=== PATIENT | male | born 1990 | race Caucasian/White ===

== ENCOUNTER 2024-06-03 12:11 | Observation (INO) ==
[2024-06-03 12:36] LABS: Basophils # (auto) 0.07 K/uL (0.00-0.20); Basophils % (auto) 0.5 %; Eosinophils # (auto) 0.24 K/uL (0.00-0.50); Eosinophils % (auto) 1.6 %; Hematocrit (blood only) 50.1 % (42.0-52.0); Hemoglobin 17.3 g/dl (14.0-18.0); Immature Granulocytes # (auto) 0.15 K/uL (0.01-0.20); Lymphocytes # (auto) 1.64 K/uL (1.20-3.40); Lymphocytes % (auto) 10.8 %; Mean Corpuscular Hemoglobin 29.7 pg (25.0-34.0); Mean Corpuscular Hgb Conc 34.5 g/dL (32.0-36.0); Mean Corpuscular Volume 85.9 fL (80.0-100.0); Mean Platelet Volume 10.2 fL (9.4-12.4); Monocytes # (auto) 1.25 K/uL (0.11-0.59); Monocytes % (auto) 8.2 %; Neutrophils # (auto) 11.82 K/uL (1.40-6.50); Neutrophils % (auto) 77.9 %; Platelet Count 203 K/uL (130-400); RDW Coefficient of Variation 12.6 % (11.5-14.5); RDW Standard Deviation 38.7 fL (36.4-46.3); Red Blood Count 5.83 M/uL (4.70-6.10); White Blood Count 15.17 K/ul (4.8-10.8)
[2024-06-03 12:37] LABS: Appearance Urine Clear (Clear); Bilirubin Urine Negative (Negative); Blood Urine Negative (Negative); Color Urine Yellow; Glucose Urine UA Negative (Negative); Ketones Urine Negative (Negative); Leukocyte Esterase Urine Negative (Negative); Nitrite Urine Negative (Negative); Protein Urine Negative (Negative); Urobilinogen Urine Negative (Negative); pH Urine 6.5 (4.5-7.5)
[2024-06-03 13:03] LABS: Alanine Aminotransferase 74 U/L (7-52); Albumin Globulin Ratio 1.7 (0.9-2); Albumin Level 4.8 gm/dl (3.4-5.0); Alkaline Phosphatase 86 U/L (34-104); Anion Gap 7 (3-11); BUN Creatinine Ratio 17.8 (10-20); Bilirubin,Total 0.4 mg/dl (0.2-1.0); Blood Urea Nitrogen 16 mg/dl (6-23); Calcium 10.2 mg/dl (8.6-10.3); Carbon Dioxide 26 mmol/L (21-32); Chloride 102 mmol/L (98-107); Creatinine Clr Calc Pharmacy 145.6 ml/min; Est GFR (African American) 130.5 ml/min; Est GFR (Non-African American) 112.6 ml/min; Globulin 2.9 gm/dl (2.5-4.0); Glucose 115 mg/dl (70-99(Fasting)); Lipase 38 U/L (11-82); Sodium 135 mmol/L (136-145); Total Protein 7.7 gm/dl (6.0-8.3)
[2024-06-03 13:34] LABS: Potassium 4.5 mmol/L (3.5-5.1)
[2024-06-03] MEDS: ONDANSETRON INJ 2 MG/ML 2 ML VIAL IV STA (13:59)
[2024-06-03] MEDS: MoRPHine SULFATE 4 MG/ML 1 ML CARP\\VIAL IV STA (14:01)
[2024-06-03] MEDS: OPTIRAY 320 100ml IV ONE (14:08)
--- NOTE | 2024-06-03 14:12 | Emergency Department Note ---
Impression & Plan Acute cholecystitis, Gallstones, Abdominal pain, acute, right upper quadrant ED Provider Note NAME: ERIKA PARRA AGE: 33 SEX: M : 1990 ARRIVES VIA: Walk-In INFORMANT: Patient, ED PROVIDER(S): Jose Joe DO CHIEF COMPLAINT: Abdominal pain HPI: The patient is a 33-year-old male who presented to the emergency department for an evaluation of abdominal pain. The patient describes abdominal pain that is in the upper abdomen. The patient denies having any nausea or vomiting. He denies having any back pain. The patient denies having any fever. He did have similar pain a few days ago but it resolved spontaneously. The patient denies having any alcohol abuse. He did not see his family doctor for the symptoms but came to emergency department today because of ongoing and worsening symptoms. ROS: See above HPI for pertinent positives & negatives. A total of 10 systems reviewed and were otherwise negative. PAST MEDICAL HISTORY: See Below PAST SURGICAL HISTORY: See Below FAMILY HISTORY: See Below SOCIAL HISTORY: See Below HOME MEDICATIONS: See Below ALLERGIES: See Below VITALS: See Below PHYSICAL EXAMINATION: GENERAL: Patient is awake alert in no acute distress patient is resting comfortably and showing no signs of anxiety EYES: The conjunctivae are clear. The pupils are round and reactive. EARS, NOSE, MOUTH AND THROAT: The nose is without any evidence of any deformity. Mucous membranes are moist. Tongue is midline. NECK: The neck is nontender and supple. RESPIRATORY: Normal respiratory effort is noted there is no evidence of wheezing rhonchi or rales CARDIOVASCULAR: Regular rate and rhythm noted there no murmurs rubs or gallops normal S1 normal S2. GASTROINTESTINAL: The abdomen is soft and nondistended. There is right upper quadrant tenderness to palpation which is moderate. MUSCULOSKELETAL/EXTREMITIES: There is no evidence of gross deformity full range of motion is noted in the hips and shoulders. SKIN: There is no obvious evidence of any rash. There are no petechiae, pallor or cyanosis noted. NEUROLOGIC: Patient is awake alert and oriented x 3. MEDICAL DECISION MAKING: The patient is a 33-year-old male who presented to the emergency department for an evaluation of abdominal pain. The patient had right upper quadrant abdominal pain on my physical exam. History and physical exam appear to be consistent with possible gallbladder pathology. The patient was treated with pain medication in the emergency department. He was also given IV antibiotics when CT appeared to be consistent with acute cholecystitis. I discussed the patient's laboratory and radiographic studies with him. I discussed his condition with the on-call general surgeon. They have agreed to evaluate the patient in the emergency department for further management and disposition. Triage Nursing notes reviewed. Prior medical records reviewed Vital Signs: reviewed and remarkable for no significant abnormalities Differential diagnosis: Etiologies such as appendicitis, diverticulitis, obstruction, inflammatory bowel disease, renal colic, PUD, biliary pathology, pancreatitis, mesenteric ischemia, aortic pathology, infections, genitourinary, UTI, perforated viscus, as well as others were entertained. ER treatment provided: See below Diagnostics interpreted by me: ECG: none Cardiac Monitoring: An order was placed for continuous cardiac monitoring. The monitor shows a rate of 62 bpm with sinus rhythm. Laboratory studies: As stated above and show below. Imaging studies: See below. Radiographic imaging was reviewed by myself Consultation(s): I discussed this case with Dr. Kaba who is on-call for the general surgical group. Past Med/Surg History Problem List (Updated 06/03/24 @ 16:51 by Jose Joe DO) Abdominal pain, acute, right upper quadrant (Acute) Gallstones (Acute) Acute cholecystitis (Acute) Social History Smoking Status: Current every day smoker Tobacco Type: Cigarettes Preferred Language: Finnish Feels Safe at Home: Yes Allergies Allergies Allergy/AdvReac Type Severity Reaction Status Date / Time bee venom protein (honey bee) Allergy Intermediate swelling Unverified 06/03/24 15:22 Home Meds Home Medications Medication Instructions Recorded Confirmed ibuprofen 1 - 2 tab PO DIRECTED PRN Pain 06/03/24 06/03/24 multivitamin 1 tab PO DAILY 06/03/24 06/03/24 Results & Data (ED) Vital Signs Vital Signs - 24 hr 06/03/24 12:12 06/03/24 13:18 06/03/24 13:44 Temperature 36.6 C Temperature Source Temporal Artery Scan Pulse Rate 69 Pulse Rate [Right Finger] 57 L 64 Pulse Rhythm [Right Finger] Regular Regular Pulse Strength [Right Finger] Normal Normal Respiratory Rate 18 17 20 Respiratory Effort / Characteristics Non-Labored Non-Labored Respiratory Depth Normal Normal Respiratory Pattern Regular Regular Blood Pressure 143/84 H Blood Pressure [Left Arm] 148/87 H 146/86 H Blood Pressure Mean 103 Blood Pressure Mean [Left Arm] 107 106 Blood Pressure Position [Left Arm] Lying Lying Pulse Oximetry 99 96 96 Oxygen Delivery Method Room Air Room Air Room Air Sepsis Recent Fever Within 48 Hours No Sepsis New/Unexplained Change in Mental Status N/A Sepsis Action Taken by Nursing No Action Required 06/03/24 14:04 06/03/24 14:40 Temperature Temperature Source Pulse Rate Pulse Rate [Right Finger] 62 Pulse Rhythm [Right Finger] Regular Pulse Strength [Right Finger] Normal Respiratory Rate 20 Respiratory Effort / Characteristics Non-Labored Respiratory Depth Normal Respiratory Pattern Regular Blood Pressure Blood Pressure [Left Arm] 158/81 H 122/82 Blood Pressure Mean Blood Pressure Mean [Left Arm] 106 95 Blood Pressure Position [Left Arm] Lying Pulse Oximetry 94 Oxygen Delivery Method Room Air Sepsis Recent Fever Within 48 Hours Sepsis New/Unexplained Change in Mental Status Sepsis Action Taken by [facility] Medications Current Medication List: was personally reviewed by me Laboratory Data Attestation: I reviewed the patient's lab results. 06/03/24 12:16 06/03/24 13:07 Lab Results 06/03/24 06/03/24 06/03/24 Range/Units 12:16 12:22 13:07 WBC 15.17 H (4.8-10.8) K/ul RBC 5.83 (4.70-6.10) M/uL Hgb 17.3 (14.0-18.0) g/dl Hct 50.1 (42.0-52.0) % MCV 85.9 (80.0-100.0) fL MCH 29.7 (25.0-34.0) pg MCHC 34.5 (32.0-36.0) g/dL RDW Std Deviation 38.7 (36.4-46.3) fL RDW Coeff of Mary Alice 12.6 (11.5-14.5) % Plt Count 203 (130-400) K/uL MPV 10.2 (9.4-12.4) fL Immature Gran % (Auto) 1.0 % Neut % (Auto) 77.9 % Lymph % (Auto) 10.8 % Gregory % (Auto) 8.2 % Eos % (Auto) 1.6 % Baso % (Auto) 0.5 % Neut # (Auto) 11.82 H (1.40-6.50) K/uL Lymph # (Auto) 1.64 (1.20-3.40) K/uL Gregory # (Auto) 1.25 H (0.11-0.59) K/uL Eos # (Auto) 0.24 (0.00-0.50) K/uL Baso # (Auto) 0.07 (0.00-0.20) K/uL Immature Gran # (Auto) 0.15 (0.01-0.20) K/uL Sodium 135 L (136-145) mmol/L Potassium TNP 4.5 Chloride 102 (98-107) mmol/L Carbon Dioxide 26 (21-32) mmol/L Anion Gap 7 (3-11) BUN 16 (6-23) mg/dl Creatinine 0.90 (0.6-1.4) mg/dl Est Cr Clr Drug Dosing 145.6 ml/min Est GFR ( Amer) 130.5 ml/min Est GFR (Non-Af Amer) 112.6 ml/min BUN/Creatinine Ratio 17.8 (10-20) Glucose 115 H (70-99(Fasting)) mg/dl Calcium 10.2 (8.6-10.3) mg/dl Total Bilirubin 0.4 (0.2-1.0) mg/dl AST TNP 40 H ALT 74 H (7-52) U/L Alkaline Phosphatase 86 (34-104) U/L Total Protein 7.7 (6.0-8.3) gm/dl Albumin 4.8 (3.4-5.0) gm/dl Globulin 2.9 (2.5-4.0) gm/dl Albumin/Globulin Ratio 1.7 (0.9-2) Lipase 38 (11-82) U/L Urine Color Yellow Urine Appearance Clear (Clear) Urine pH 6.5 (4.5-7.5) Ur Specific [place] 1.020 (1.000-1.030) Urine Protein Negative (Negative) Urine Glucose (UA) Negative (Negative) Urine Ketones Negative (Negative) Urine Blood Negative (Negative) Urine Nitrite Negative (Negative) Urine Bilirubin Negative (Negative) Urine Urobilinogen Negative (Negative) Ur Leukocyte Esterase Negative (Negative) Administered Medications Discontinued Medications Piperacillin Sod/Tazobactam Sod (Zosyn) 4.5 gm in 100 mls @ 200 mls/hr IV NOW ONE Stop: 06/03/24 16:10 Last Admin: 06/03/24 16:07 Dose: 200 mls/hr Documented By: EMETERIO Ioversol (Optiray 320 100ml) 95 ml IV ONCE ONE Stop: 06/03/24 14:08 Last Admin: 06/03/24 14:08 Dose: 95 ml Documented By: LILLIAN Morphine Sulfate (Morphine Sulfate 4 Mg/Ml 1 Ml Carp\Vial) 4 mg IV NOW STA Stop: 06/03/24 13:43 Last Admin: 06/03/24 14:01 Dose: 4 mg Documented By: ALLEN Ondansetron HCl (Ondansetron Inj 2 Mg/Ml 2 Ml Vial) 4 mg IV NOW STA Stop: 06/03/24 13:43 Last Admin: 06/03/24 13:59 Dose: 4 mg Documented By: ALLEN Imaging Data Attestation: I personally reviewed and interpreted this imaging study as follows: My Impression: CT of the abdomen and pelvis was obtained in the emergency department. My interpretation is no free air or signs of bowel obstruction, there was pericholecystic fluid noted, final report below. Radiologist's Impression: Abdomen/Pelvis CT 06/03/24 13:[address] WITH IV CONTRAST CT DOSE: 1468.74 mGy.cm HISTORY: Right upper quadrant pain. TECHNIQUE: Multiaxial CT images of the abdomen and pelvis were performed following the use of intravenous contrast. A dose lowering technique was utilized adhering to the principles of ALARA. COMPARISON STUDY: None. FINDINGS: The lung bases are clear. No pneumoperitoneum. No pneumatosis. No acute fractures. No hepatic or splenic masses. The pancreas, right adrenal gland, and kidneys are unremarkable. No hydronephrosis. There is an indeterminate 1.9 cm left adrenal gland nodule. The main portal vein is patent. Normal caliber abdominal aorta.. There is a 1.5 cm stone within the neck of the gallbladder which may be impacted. There is mild gallbladder wall thickening with trace pericholecystic fluid. Therefore, this is concerning for an early acute cholecystitis. Normal caliber common bile duct. No retroperitoneal or pelvic lymphadenopathy. No pelvic free fluid. Normal bladder. A few colonic diverticula. No evidence for acute diverticulitis. No bowel wall thickening or obstruction. Normal appendix. There is an additional small stone within the fundus of the gallbladder. IMPRESSION: There is a 1.5 cm stone within the neck of the gallbladder which may be impacted. There is mild gallbladder wall thickening with trace pericholecystic fluid. Therefore, this is concerning for an early acute cholecystitis. Surgical consultation recommended. ACT 112: Negative or not required by law. Electronically signed by: Malik Wood M.D. 06/03/2024 2:52 PM Discharge Plan Visit Data Chief Complaint: Abdominal Pain Stated Complaint: ABD PAIN ED Provider: Jose Joe Discharge Problem: Acute cholecystitis, Gallstones, Abdominal pain, acute, right upper quadrant Patient Disposition: Being Evaluated by Surgeon Forms Stand Alone Forms: [employer] Prescriptions Prescriptions: No Action multivitamin [Multi-Vitamin] Tablet 1 tab PO DAILY ibuprofen 1 - 2 tab PO DIRECTED PRN (Reason: Pain) Rx Instructions: otc Referrals Referrals: PCP,NO [Primary Care Provider] -
--- NOTE | 2024-06-03 14:55 | CT Scan Report ---
ABDOMEN AND PELVIS CT WITH IV CONTRAST CT DOSE: 1468.74 mGy.cm HISTORY: Right upper quadrant pain. TECHNIQUE: Multiaxial CT images of the abdomen and pelvis were performed following the use of intrave nous contrast. A dose lowering technique was utilized adhering to the principles of ALARA. COMPARISON STUDY: None. FINDINGS: The lung bases are clear. No pneumoperitoneum. No pneumatosis. No acute fractures. No hepat ic or splenic masses. The pancreas, right adrenal gland, and kidneys are unremarkable. No hydronephro sis. There is an indeterminate 1.9 cm left adrenal gland nodule. The main portal vein is patent. Norm al caliber abdominal aorta.. There is a 1.5 cm stone within the neck of the gallbladder which may be impacted. There is mild gallbladder wall thickening with trace pericholecystic fluid. Therefore, this is concerning for an early acute cholecystitis. Normal caliber common bile duct. No retroperitoneal or pelvic lymphadenopathy. No pelvic free fluid. Normal bladder. A few colonic diverticula. No eviden ce for acute diverticulitis. No bowel wall thickening or obstruction. Normal appendix. There is an ad ditional small stone within the fundus of the gallbladder. IMPRESSION: There is a 1.5 cm stone within the neck of the gallbladder which may be impacted. There is mild gallb ladder wall thickening with trace pericholecystic fluid. Therefore, this is concerning for an early a cute cholecystitis. Surgical consultation recommended. ACT 112: Negative or not required by law. Electronically signed by: Malik Wood M.D. 06/03/2024 2:52 PM
[2024-06-03] MEDS: PIPERACILLIN/TAZOBACTAM 4.5 GM/100 ML BAG IV ONE (16:07)
[2024-06-03] MEDS ORDERED: ACETAMINOPHEN 325 MG TAB PO PRN (17:44)
[2024-06-03] MEDS ORDERED: MoRPHine SULFATE 2 MG/ML CARP IV PRN (17:44)
[2024-06-03] MEDS ORDERED: ONDANSETRON INJ 2 MG/ML 2 ML VIAL IV PRN (17:44)
[2024-06-03] MEDS: LACTATED RINGER'S 1,000 ML IV SCH (18:00)
[2024-06-03] MEDS: NICOTINE 14 MG/24 HR PATCH TD SCH (18:43)
--- NOTE | 2024-06-03 19:11 | History & Physical Report ---
Date of Service June 03, 2024 Assessment & Plan (1) Acute cholecystitis: Plan: Due to the patient's clinical presentation, as well as findings on imaging the patient will be admitted on the surgical service proceeding as follows: Analgesia will be provided Antiemetics be provided IV fluids be provided for hydration Antibiotics will be continuedthe patient has received Zosyn in the emergency department but we will utilize Unasyn for the remainder of his hospitalization I feel the patient can safely have clear liquids as he does not have any abdominal pain but we will make him n.p.o. after midnight tonight The patient is tentatively scheduled for cholecystectomy with Dr. Jeff Kaba on 06/04/2024. We will repeat LFTs in the morning Would recommend utilizing SCDs only for DVT prevention, no chemical means due to planned surgery The patient will be a level 1 full code Admission and Anticipated Discharge Date Admission Date: June 03, 2024 History of Present Illness Chief Complaint: Abdominal pain Primary Care Provider: NO PCP This is a 33-year-old male who presented to the emergency department [facility] secondary to abdominal pain. The patient notes that this is the second time he had such pain. Approximately 3 days ago the pain reported pain in his upper abdomen unrelated to meals that ultimately resolved without intervention. He notes that the pain recurred earlier today and was much more severe than what he noted previously. I asked the patient if he has had any postprandial pain over the past several weeks to months which he denied. With his current pain he had associated nausea and vomiting but denied any fevers, shakes, or chills. He does not report any modifying factors to the pain. He has never had any abdominal surgeries before. The patient notes that when he feels well he is an active person although he does smoke daily. He does note that he can negotiate steps and inclines without any chest pain or shortness of breath. Since arrival to the hospital the patient had labs and imaging which I independent reviewed. CT scan of the abdomen pelvis showed the patient had a 1.5 cm gallstone in the neck of the gallbladder felt to be impacted. There is mild gallbladder wall thickening and trace pericholecystic fluid with concern for acute cholecystitis. Labs included CBC were white blood cell count was elevated 15.1. Hemoglobin and hematocrit as well as the platelet count were normal. Chemistry profile showed sodium is 135 with a normal potassium. BUN and creatinine were both normal. The patient's total bilirubin alkaline phosphatase were nonelevated. He had a slight elevation of his AST and ALT at 40 and 74 respectively. He did not have any elevation of his lipase. Urinalysis was not indicative of infection. At the time of my interview he was resting comfortably in bed he was in no distress. Concerning past surgical history he denies any surgeries Concerning past medical history denies any medical problems Concerning social history he is a current smoker Allergies Allergy/AdvReac Type Severity Reaction Status Date / Time bee venom protein (honey bee) Allergy Intermediate swelling Unverified 06/03/24 15:22 Home Medications Medication Instructions Recorded Confirmed Type ibuprofen 1 - 2 tab PO DIRECTED PRN Pain 06/03/24 06/03/24 History multivitamin 1 tab PO DAILY 06/03/24 06/03/24 History Past Med/Surg History Problem List Abdominal pain, acute, right upper quadrant (Acute) Gallstones (Acute) Acute cholecystitis (Acute) Social History Smoking Status: Current every day smoker Tobacco Type: Cigarettes Do You Dip or Chew Tobacco: No; Hx Alcohol Use: No Hx Substance Use: No Preferred Language: Lao Communication Ability: Effective Current Living Situation: Significant Other Feels Safe at Home: Yes Safety Concerns: Feels Safe At This Time Assistive Devices: None Review of Systems Review of Systems: All systems reviewed & are unremarkable except as noted in HPI & below Physical Exam Constitutional: WD/WN, vitals as above Eyes: + anicteric sclerae ENMT: Ears: no hearing impairment and no external ear abnormality Sublingual jaundice is absent Neck: trachea midline Respiratory: normal respiratory effort, lungs clear to auscultation Cardiovascular: Rate/Rhythm: regular rate and regular rhythm Gastrointestinal (Abdomen): At the time of my exam the patient's abdomen was noted to be soft and nondistended. There is minimal to no pain at the time of my interview specifically in the right upper quadrant or epigastric areas. There is no rebound tenderness or guarding Musculoskeletal: No calf tenderness Skin: no rashes Neurologic: moves all extremities Psychiatric: A+Ox3, euthymic affect Results & Data Results & Data Vital Signs (Past 12 Hours) Vital Signs Temp Pulse Pulse Resp BP BP Pulse Ox 06/03/24 18:15 06/03/24 17:49 36.8 C 62 16 133/82 94 06/03/24 16:57 06/03/24 14:40 62 20 122/82 94 06/03/24 14:04 158/81 H 06/03/24 13:44 64 20 146/86 H 96 06/03/24 13:18 57 L 17 148/87 H 96 06/03/24 12:12 36.6 C 69 18 143/84 H 99 O2 Del Method 06/03/24 18:15 Room Air 06/03/24 17:49 Room Air 06/03/24 16:57 Room Air 06/03/24 14:40 Room Air 06/03/24 14:04 06/03/24 13:44 Room Air 06/03/24 13:18 Room Air 06/03/24 12:12 Room Air Code Status & VTE Plan VTE Prophylaxis Plan VTE Prophylaxis will be ordered: Yes Supervising Physician Co-Signing Physician Notes I personally saw and evaluated the patient with Anand Leonard PA-C and agree with assessment and plan. 33-year-old male with acute cholecystitis CT images and results were personally reviewed by myself He does have a show gallbladder with thickened wall with gallstones consistent with acute cholecystitis Admit the patient, keep NPO, give IV ABX To OR tomorrow for lap lillian PG Care Time/CCT Total # of Minutes Spent Total Time Spent with Patient: Total time spent is greater than 50% in coordination of care (as documented) at patient's floor/unit and/or counseling patient: Coding Level of Care Code 40641 INT INP/OBS CARE 3/75MIN Diagnoses Acute cholecystitis K81.0
[2024-06-03] MEDS: AMPICILLIN/SULBACTAM SOD 3,000 MG/100 ML BAG IV SCH (20:28)
[2024-06-04 06:22] LABS: Basophils # (auto) 0.05 K/uL (0.00-0.20); Basophils % (auto) 0.5 %; Eosinophils # (auto) 0.45 K/uL (0.00-0.50); Eosinophils % (auto) 4.3 %; Hematocrit (blood only) 47.1 % (42.0-52.0); Hemoglobin 16.7 g/dl (14.0-18.0); Immature Granulocytes # (auto) 0.08 K/uL (0.01-0.20); Immature Granulocytes % (auto) 0.8 %; Lymphocytes # (auto) 2.32 K/uL (1.20-3.40); Mean Corpuscular Hemoglobin 30.2 pg (25.0-34.0); Mean Corpuscular Hgb Conc 35.5 g/dL (32.0-36.0); Mean Corpuscular Volume 85.2 fL (80.0-100.0); Mean Platelet Volume 9.5 fL (9.4-12.4); Monocytes # (auto) 1.16 K/uL (0.11-0.59); Neutrophils % (auto) 61.4 %; Platelet Count 185 K/uL (130-400); RDW Coefficient of Variation 12.9 % (11.5-14.5); RDW Standard Deviation 39.6 fL (36.4-46.3); Red Blood Count 5.53 M/uL (4.70-6.10); White Blood Count 10.56 K/ul (4.8-10.8)
[2024-06-04 06:46] LABS: Albumin Globulin Ratio 1.7 (0.9-2); Albumin Level 4.1 gm/dl (3.4-5.0); BUN Creatinine Ratio 14.8 (10-20); Bilirubin,Total 0.7 mg/dl (0.2-1.0); Calcium 8.9 mg/dl (8.6-10.3); Creatinine Clr Calc Pharmacy 148.9 ml/min; Est GFR (African American) 131.7 ml/min; Est GFR (Non-African American) 113.7 ml/min; Globulin 2.4 gm/dl (2.5-4.0); Potassium 3.9 mmol/L (3.5-5.1); Total Protein 6.5 gm/dl (6.0-8.3)
[2024-06-04 06:51] LABS: Partial Thromboplastin Time 27 Seconds (21-31); Prothrombin Time 10.9 Seconds (9.0-12.0)
[2024-06-04] MEDS ORDERED: fentaNYL citrate PF 100 MCG/2 ML VIAL ONE ×3 (07:16→09:16)
[2024-06-04] MEDS ORDERED: PROPOFOL IV EMULSION 10 MG/ML 20 ML VIAL IV ONE (07:16)
[2024-06-04] MEDS ORDERED: MIDAZOLAM HCL 1 MG/ML 2ML VIAL ONE (07:16)
[2024-06-04] MEDS ORDERED: ROCURONIUM BROMIDE 10 MG/ML 5 ML VIAL IV ONE (07:16)
[2024-06-04] MEDS ORDERED: ONDANSETRON INJ 2 MG/ML 2 ML VIAL ONE (07:16)
[2024-06-04] MEDS ORDERED: LIDOCAINE 2% 2 ML VIAL/AMP(20MG/ML) INFIL ONE (07:16)
[2024-06-04] MEDS ORDERED: ACETAMINOPHEN 1000 MG/100 ML IV IV ONE (07:24)
--- NOTE | 2024-06-04 07:32 | Surgery Progress Note ---
Date of Service June 04, 2024 Assessment & Plan (1) Acute cholecystitis: Plan: Plan on laparoscopic cholecystectomy, possible open today, possible intraoperative cholangiogram Consent was obtained and risks discussed including bleeding, infection, bile leak, ductal injury Admission and Anticipated Discharge Date Admission Date: June 03, 2024 Subjective Patient seen and examined. Pain minimal at this point. Afebrile. NO acute events overnight. Review of Systems Constitutional: no fever and no chills Physical Exam Constitutional: WD/WN, vitals as above Gastrointestinal (Abdomen): Inspection/Auscultation: abdomen normal to inspection; abdomen not distended Percussion/Palpation: + abdomen tender (RUQ) and abdomen soft; no guarding and no hernia Results & Data Vital Signs (Past 12 Hours) Vital Signs Temp Pulse Resp BP Pulse Ox O2 Del Method 06/03/24 20:32 36.7 C 93 H 20 109/71 95 Room Air PG Care Time/CCT Total # of Minutes Spent Total Time Spent with Patient: Total time spent is greater than 50% in coordination of care (as documented) at patient's floor/unit and/or counseling patient: Coding Level of Care Code 69215 SUB INP/OBS CARE 1/25MIN Diagnoses Acute cholecystitis K81.0
[2024-06-04] MEDS ORDERED: ATROPINE SULFATE 0.1 MG/ML 10ML SYR IV PRN (08:25)
[2024-06-04] MEDS ORDERED: ePHEDrine sulfate 50 MG/ML AMP IV PRN (08:25)
[2024-06-04] MEDS ORDERED: PROMETHAZINE HCL 6.25 MG in SODIUM CHLORIDE 0.9% 50 ML IV PRN (08:25)
[2024-06-04] MEDS ORDERED: ONDANSETRON INJ 2 MG/ML 2 ML VIAL IV PRN (08:25)
[2024-06-04] MEDS ORDERED: DEXAMETHASONE SOD INJ 4 MG/ML VIAL ONE (08:25)
--- NOTE | 2024-06-04 08:25 | Anesthesiology Consultation ---
Date of Service June 04, 2024 Assessment & Plan Chart Review Chart Review: Acceptable Risk for Surgery and Patient NOT seen in Pre Admission Testing Consults Requested none ASA ASA2 Proposed Anesthesia Anesthesia Type: General Risk / Benefits Reviewed With: PT / POA / Parent / Guardian, Accepts Plan and Informed Consent Obtained History Surgery Operation Date: 06/04/24 11:00 Proposed Procedures p Laparoscopic Cholecystectomy - Jeff Kaba, DO Height/Weight Height: 5 ft 11 in Weight: 105.4 kg Allergies Allergy/AdvReac Type Severity Reaction Status Date / Time bee venom protein (honey bee) Allergy Intermediate swelling Unverified 06/03/24 15:22 Medications Home Medications Medication Instructions Recorded Confirmed Last Taken ibuprofen 1 - 2 tab PO DIRECTED PRN Pain 06/03/24 06/03/24 Unknown multivitamin 1 tab PO DAILY 06/03/24 06/03/24 Unknown Active Medications Generic Name Dose Route Start Last Admin Trade Name Freq PRN Reason Stop Dose Admin Lactated Ringer's 1,000 mls @ 100 mls/hr 06/03/24 17:44 06/04/24 03:20 Lr IV 07/03/24 17:43 100 mls/hr .Q10H SCOTT Administration Ampicillin Sodium/Sulbactam Sodium 3,000 mg in 100 mls @ 200 mls/hr 06/03/24 21:00 06/04/24 04:10 Unasyn IV 06/13/24 20:59 Infused Q6H SCOTT Infusion Protocol Nicotine 1 patch 06/03/24 18:45 06/03/24 18:43 Nicotine 14 Mg/24 Hr Patch TD 07/03/24 18:44 1 patch QAM SCOTT Administration NPO Date Last Intake of Fluids: 06/03/24 Time Last Intake of Fluids: 10:00 Date Last Intake of Solids: 06/02/24 Exercise / Class Metabolic Activity II 4-5 Yardwork/Stairs/Walk up hill Past Anesthesia History No Hx of Anesthesia Complications and No Family Hx of Anesthesia Complications History of PONV No Hx of PONV and No Hx of Motion Sickness Social History Smoking Status: Current every day smoker Do You Dip or Chew Tobacco: No Hx Alcohol Use: No Hx Substance Use: No Physical Exam Vital Signs Last Vital Signs Temp 36.5 C 06/04/24 07:51 Pulse 80 06/04/24 07:51 Resp 16 06/04/24 07:51 BP 130/78 06/04/24 07:51 Pulse Ox 92 06/04/24 07:51 O2 Del Method Room Air 06/04/24 07:53 ENMT Mouth: no dentition abnormality Thyromental Distance: > or= 3.5 Finger Breadths Mallampati Class: II Neck normal visual inspection Respiratory normal respiratory effort Auscultation: lungs clear to auscultation bilaterally Cardiovascular Rate/Rhythm: regular rate and regular rhythm Psychiatric Orientation: alert Testing Laboratory Results 06/04/24 06:08 06/04/24 06:08 PT 10.9 Seconds (9.0-12.0) 06/04/24 06:08 INR 1.0 (0.9-1.1) 06/04/24 06:08 APTT 27 Seconds (21-31) 06/04/24 06:08 Urine Color Yellow 06/03/24 12:22 Urine Appearance Clear (Clear) 06/03/24 12:22 Urine pH 6.5 (4.5-7.5) 06/03/24 12:22 Ur Specific [place] 1.020 (1.000-1.030) 06/03/24 12:22 Urine Protein Negative (Negative) 06/03/24 12:22 Urine Glucose (UA) Negative (Negative) 06/03/24 12:22 Urine Ketones Negative (Negative) 06/03/24 12:22 Urine Nitrite Negative (Negative) 06/03/24 12:22 Ur Leukocyte Esterase Negative (Negative) 06/03/24 12:22
[2024-06-04] MEDS ORDERED: KETAMINE HCL 10MG/ML SYR ONE (08:27)
[2024-06-04] MEDS ORDERED: SUGAMMADEX SODIUM 200 MG/2 ML VIAL IV ONE (08:44)
[2024-06-04] MEDS: BUPIVACAINE/EPINEPHRINE 0.25% 1:200,000 30 ML VIAL ONE (09:15)
[2024-06-04] MEDS: FLOSEAL HEMOSTATIC MATRIX 10ML TOP ONE (09:16)
--- NOTE | 2024-06-04 09:16 | Post Operative Brief Note ---
PG Immediate Post Op with CF Date of Surgery June 04, 2024 Pre & Post Diagnosis Operation Date: 06/04/24 11:00 Pre-Op Diagnosis: Acute Cholecystitis Post-Op Diagnosis: Acute Cholecystitis I identified the patient and participated in the time-out.: Yes Procedure Operation Date: 06/04/24 11:00 Actual Procedures p Laparoscopic Cholecystectomy(Not Applicable) - Jeff Kaba DO Surgeon Jeff Kaba DO Human Resources Receptionist Karl MOONEY Estimated Blood Loss 25 Findings See Below Acutely inflamed, edematous thickened gallbladder Specimens Specimen Description: A. Gall Bladder and Contents Anesthesia Type General Complications none Disposition Disposition: Recovery Room
--- NOTE | 2024-06-04 09:19 | Operative Report ---
[facility] Post Operative Report Pre & Post Diagnosis Operation Date: 06/04/24 11:00 Pre-Op Diagnosis: Acute Cholecystitis Post-Op Diagnosis: Acute Cholecystitis I identified the patient and participated in the time-out.: Yes Procedure Operation Date: 06/04/24 11:00 Actual Procedures p Laparoscopic Cholecystectomy(Not Applicable) - Jeff Kaba DO Surgeon Jeff Kaba DO Junior Business Analyst Karl MOONEY Estimated Blood Loss 25 Findings See Below Acutely inflamed, edematous gallbladder with thickened wall Fluids see anesthesia record Specimens Gallbladder to pathology Drains None Anesthesia Type General Complications none Disposition Disposition: Recovery Room Indications 33 yo male with acute cholecystitis Description of Procedure The patient was brought to the operating room and placed in the supine position with both arms extended. At this time he underwent general endotracheal anesthesia without any problems. He was given appropriate pre-operative antibiotics. His abdomen prepped and draped in the usual sterile fashion. A timeout was called, the procedure was verified as Laparoscopic cholecystectomy, possible open, possible intra-operative cholangiogram. Surgical, nursing and anesthesia teams agreed and the procedure was begun. After injection of 0.25% Marcaine with epinephrine, a supraumbilical vertical incision was made and carried down to the fascia using S-retractors. The abdominal wall was then elevated with towel clamps and abdomen entered using the Veress needle confirming position using the saline drop test. Pneumoperitoneum was established. 5mm trocar was placed. Laparoscope was introduced. No injury from entry into the abdomen was visualized after inspection of the abdomen. Three further ports were placed under direct visualization. One 11mm in the subxiphoid region and two 5mm in the RUQ. At this time the abdomen was inspected and the gallbladder identified. The gallbladder fundus was grasped and retracted cephalad. Some loose omental adhesions to the gallbladder were lysed using blunt dissection. The gallbladder infundibulum was then grasped and retracted laterally. The cystic duct and cystic artery were then identified and skeletonized. The critical view of safety was obtained. They were both then clipped twice proximally and once distally and then divided using scissors. The gallbladder was then taken off of the liver bed using electrocautery and placed in an endocatch bag and removed from the subxiphoid port. The liver bed was then inspected and no bile leak or bleeding was evident. 10mL Floseal hemostatic agent was placed in the gallbladder fossa. The subxiphoid port was then closed using 0-Vicryl using the suture passer. The trocars were then removed under direct visualization and no bleeding was present. Abdomen was desufflated. The skin was then closed using 4-0 Monocryl in a subcuticular fashion. Surgical glue was applied. Needle and sponge counts were correct x 2. At this time the patient was awoken from anesthesia and extubated having remained stable throughout the entire case. The patient was then transported to PACU in stable condition. The nurse practitioner was present and scrubbed for the entire case. She was essential in positioning, prepping and draping the patient, retraction and exposure, driving the laparoscope, closure of the incisions and placement of the dressings. I attest to the content of the Intraoperative Record and any orders documented therein. Any exceptions are noted below.
[2024-06-04] MEDS: fentaNYL citrate PF 100 MCG/2 ML VIAL IV PRN (09:50)
--- NOTE | 2024-06-04 10:42 | Anesthesiology Progress Note ---
Date of Service June 04, 2024 Anesthesia Post Procedure Vital Signs Vital Signs: Temp Pulse Pulse Pulse Resp BP BP 06/04/24 10:35 36.8 C 68 16 118/82 06/04/24 10:05 72 13 06/04/24 09:55 78 9 L 06/04/24 09:45 70 17 06/04/24 09:35 74 17 06/04/24 09:25 36.3 C L 75 12 06/04/24 07:53 06/04/24 07:51 36.5 C 80 16 06/04/24 07:49 36.6 C 79 19 128/78 06/03/24 20:32 36.7 C 93 H 20 109/71 06/03/24 18:15 06/03/24 17:49 36.8 C 62 16 133/82 06/03/24 16:57 06/03/24 14:40 62 20 122/82 06/03/24 14:04 158/81 H 06/03/24 13:44 64 20 146/86 H 06/03/24 13:18 57 L 17 148/87 H 06/03/24 12:12 36.6 C 69 18 143/84 H BP Pulse Ox O2 Del Method O2 Flow Rate 06/04/24 10:35 94 Room Air 06/04/24 10:05 124/78 94 Oxymask 3 06/04/24 09:55 140/72 93 Oxymask 5 06/04/24 09:45 128/76 93 Oxymask 9 06/04/24 09:35 127/71 93 Oxymask 9 06/04/24 09:25 127/65 96 Oxymask 9 06/04/24 07:53 Room Air 06/04/24 07:51 130/78 92 Room Air 06/04/24 07:49 95 Room Air 06/03/24 20:32 95 Room Air 06/03/24 18:15 Room Air 06/03/24 17:49 94 Room Air 06/03/24 16:57 Room Air 06/03/24 14:40 94 Room Air 06/03/24 14:04 06/03/24 13:44 96 Room Air 06/03/24 13:18 96 Room Air 06/03/24 12:12 99 Room Air Pain Intensity Abdomen: Pain Intensity: 2 Transfer of Care Handoff Completed per policy Notes Mental Status: alert / awake / arousable Patient Amnestic to Procedure: Yes Nausea / Vomiting: adequately controlled Pain: adequately controlled Airway Patency, RR, SpO2: stable & adequate BP & HR: stable & adequate Hydration State: stable & adequate Anesthetic Complications: no major complications apparent
[2024-06-04] MEDS: oxyCODONE HCL IR 5 MG TAB (IMMEDIATE RELEASE) PO PRN (10:47)
[2024-06-04] MEDS: MoRPHine SULFATE 4 MG/ML 1 ML CARP\\VIAL IV PRN (11:43)
[2024-06-04 23:19] VITALS: RESP 16; O2SAT 94
[2024-06-05 06:14] LABS: Basophils # (auto) 0.04 K/uL (0.00-0.20); Basophils % (auto) 0.2 %; Eosinophils # (auto) 0.14 K/uL (0.00-0.50); Eosinophils % (auto) 0.8 %; Hematocrit (blood only) 44.9 % (42.0-52.0); Hemoglobin 15.9 g/dl (14.0-18.0); Immature Granulocytes # (auto) 0.07 K/uL (0.01-0.20); Immature Granulocytes % (auto) 0.4 %; Lymphocytes # (auto) 2.75 K/uL (1.20-3.40); Lymphocytes % (auto) 16.1 %; Mean Corpuscular Hemoglobin 30.2 pg (25.0-34.0); Mean Corpuscular Hgb Conc 35.4 g/dL (32.0-36.0); Mean Corpuscular Volume 85.4 fL (80.0-100.0); Mean Platelet Volume 9.7 fL (9.4-12.4); Monocytes # (auto) 1.66 K/uL (0.11-0.59); Monocytes % (auto) 9.7 %; Neutrophils # (auto) 12.47 K/uL (1.40-6.50); Neutrophils % (auto) 72.8 %; Platelet Count 191 K/uL (130-400); RDW Coefficient of Variation 12.6 % (11.5-14.5); RDW Standard Deviation 39.1 fL (36.4-46.3); Red Blood Count 5.26 M/uL (4.70-6.10); White Blood Count 17.13 K/ul (4.8-10.8)
[2024-06-05 06:26] LABS: Albumin Globulin Ratio 1.8 (0.9-2); Albumin Level 4.1 gm/dl (3.4-5.0); BUN Creatinine Ratio 12.2 (10-20); Bilirubin,Total 0.7 mg/dl (0.2-1.0); Calcium 8.8 mg/dl (8.6-10.3); Creatinine Clr Calc Pharmacy 133.7 ml/min; Est GFR (African American) 117.8 ml/min; Est GFR (Non-African American) 101.6 ml/min; Globulin 2.3 gm/dl (2.5-4.0); Potassium 3.8 mmol/L (3.5-5.1); Total Protein 6.4 gm/dl (6.0-8.3)
[2024-06-05 07:07] VITALS: BP 148/89; PULSE 72; TEMP 98.4
[2024-06-05] MEDS: oxyCODONE HCL IR 5 MG TAB (IMMEDIATE RELEASE) PO PRN (07:37)
--- NOTE | 2024-06-05 08:16 | Surgery Progress Note ---
Date of Service June 05, 2024 Assessment & Plan (1) Acute cholecystitis: Plan: POD 1 lap lillian doing well, expected post operative discomfort VSS wbc elevated , afebrile tolerating diet ready for d/c f/u 2 weeks op seen with Dr. Kaba Admission and Anticipated Discharge Date Admission Date: June 03, 2024 Subjective incisional pain no other complaints Review of Systems Constitutional: no fever and no chills Respiratory: no dyspnea Cardiovascular: no chest pain Gastrointestinal: no nausea and no vomiting Physical Exam Constitutional: comfortable; no acute distress Respiratory: normal respiratory effort; no respiratory distress Cardiovascular: Rate/Rhythm: regular rate Gastrointestinal (Abdomen): Inspection/Auscultation: + abdominal surgical incision (CDI); abdomen not distended Percussion/Palpation: + abdomen tender and abdomen soft Results & Data Vital Signs (Past 12 Hours) Vital Signs Temp Pulse Resp BP BP Pulse Ox O2 Del Method 06/05/24 07:06 98.4 F 72 16 148/89 H 94 Room Air 06/05/24 03:09 97.7 F 64 16 117/68 94 Room Air 06/04/24 23:18 98.2 F 62 16 129/72 94 Room Air PG Care Time/CCT Total # of Minutes Spent Total Time Spent with Patient: Total time spent is greater than 50% in coordination of care (as documented) at patient's floor/unit and/or counseling patient: Coding Level of Care Code 00211 Post Operative Follow-Up Diagnoses Acute cholecystitis K81.0
== END 2024-06-05 10:58 | disposition home or self-care (01) | DRG 419 ==
LOC: ED 12:11 → 3W 15:02 → INTOOBSV 15:02 → 3W 16:57